=== PATIENT | female | born 1980 | race Caucasian/White ===

== ENCOUNTER 2020-05-17 15:27 | Emergency (ER) | payer OTHER ==
[~2020-05-17] VITALS: Ht 170.2 cm; Wt 75.0 kg
[~2020-05-17 15:27] MED LIST: ALLEGRA60 MG OR; AMOXICILLIN500 M1 OR; AMOXICILLIN500 MG PO; CIPRO500 MG OR; LORTAB 5 OR; NAPROSYN500 MG OR; NO HOME MEDS; PENICILLN VK500 M1 OR; PENICILLN VK500 MG OR; PENICILLN VK500 MG PO; PERCOCET 5/325M1 TAB OR; ROBITUSSIN200 MG/10 PO; ULTRAM50 MG OR
[2020-05-17] MEDS ORDERED: AMOXICILLIN500 MG PO (15:57)
[2020-05-17] MEDS ORDERED: NAPROXEN500 MG PO (15:57)
[2020-05-17 16:11] VITALS: BP 126/68
== END 2020-05-17 16:11 | disposition home or self-care (01) ==
LOC: ED 15:27
DX: K02.9 Dental caries, unspecified (principal)

== ENCOUNTER 2021-05-19 10:04 | Emergency (ER) | payer OTHER ==
[~2021-05-19] VITALS: Ht 170.2 cm; Wt 73.0 kg
[~2021-05-19 10:04] MED LIST changes: +NAPROXEN500 MG PO
[2021-05-19 12:36] LABS: HEMATOCRIT 32.8 % (37.0-47.0); HEMOGLOBIN 9.8 g/dl (12.0-16.0); IMMATURE GRANULOCYTES 0.8 % (0.0-5.0); MEAN CORPUSCULAR HGB 23.7 pG CALC (26.0-32.0); MEAN CORPUSCULAR HGB CONC 29.9 g/dL CAL (32.0-36.0); NEUT# 2.14 thou/uL (2.00-7.15); RED BLOOD COUNT 4.14 mill/uL (4.20-5.60); RED CELL DISTRI WIDTH 15.6 % (11.5-15.5)
[2021-05-19 12:37] LABS: MEAN CELL VOLUME 79.2 fL CALC (80.0-100.0)
[2021-05-19 12:43] LABS: ALBUMIN 4.3 g/dL (3.2-5.0); ALKALINE PHOSPHATASE 42 u/l (38-126); ANION GAP 17 (6-22 (CALC)); BILIRUBIN, TOTAL 0.7 mg/dL (0.0-1.4); BUN 9 mg/dL (7-17); BUN/CREATININE RATIO 20 (12-20 (CALC)); CARBON DIOXIDE 24 mmol/l (22-30); CHLORIDE 99 mmol/l (95-108); CREATININE 0.5 mg/dL (0.5-1.0); GFR > 60 ML/MIN (>=60 (CALC)); GFR FOR AFR.AMER. > 60 ML/MIN (>=60 (CALC)); POTASSIUM 3.9 mmol/l (3.5-5.1); SODIUM 136 mmol/l (137-146)
[2021-05-19 12:59] LABS: SGOT/AST 38 u/l (14-36)
[2021-05-19] MEDS ORDERED: ZOFRAN4 MG/TAB PO (13:45)
[2021-05-19 14:10] VITALS: BP 127/72
== END 2021-05-19 14:10 | disposition home or self-care (01) ==
LOC: ED 10:04
DX: U07.1 COVID-19 (principal); E86.0 Dehydration